=== PATIENT | male | born 1935 ===

== ENCOUNTER 2019-09-22 09:57 | Outpatient (CLI) | payer OTHER, SELFPAY ==
--- NOTE | 2019-09-22 10:29 | XR_ITS ---
WS: [id number] ABDOMEN 1 VIEW(S) HISTORY: abdominal pain COMPARISON: 12/12/2009 Normal bowel gas pattern. 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 Prior cholecystecto my. Sclerotic focus in the RIGHT ilium has been present on prior studies. Degenerative changes at L5-S1. Bilateral hip arthritis. XR/XR KUB [id number] IMPRESSION: 1. Prior cholecystectomy. 2. Splenic artery calcifications. 3. No renal or ureteral calcifications identified.
== END 2019-09-22 09:58 | disposition home or self-care (01) ==
LOC: RAD 10:05
PROVIDERS: Family Provider Emergency Medicine Emergency Medical Services; PCP Emergency Medicine Emergency Medical Services; Visit Provider Internal Medicine
DX: R10.9 Unspecified abdominal pain (principal)
CPT/HCPCS: 74018

== ENCOUNTER 2019-10-23 13:55 | Emergency (ER) | payer OTHER, MEDICARE, SELFPAY ==
[2019-10-23 13:59] VITALS: BP 168/94; PULSE 101; RESP 20; TEMP 37; O2SAT 97; BMI 26.9
--- NOTE | 2019-10-23 14:53 | ED_ITS ---
HPI - Abdominal Pain General: Chief Complaint: Abdominal Pain Stated Complaint: stomach pain Time Seen by Provider: 10/23/19 14:32 History of Present Illness: HPI narrative: Patient is an 79 year old male presenting with abdominal pain. He reports a constant, moderate pain across his lower abdomen that has been present for about 6 months and at times gets very severe. He also has a newer pain in the RLQ that has been present for a few months and in the past week or two has been very severe to the point that he can't stand, lay down or eat. He saw his PCP, Dr. Emerson at the [facility] when the pain first started and had a CT that was normal. He spends cruz in [place] but came back early this year due to the worsening pain. He wanted to see Dr. Fernandez for a colonoscopy but hasn't been able to due to the coronavirus. He has not eaten anything in the past few days because of no appetite and his pain gets worse when he eats. he has had diarrhea some days, constipation some days, and normal BM some days. he feels that his pain is sometimes a little better after a BM. He has not had any trouble urinating. He feels like he has lost about 5 pounds in the past week. He denies fever. MD elicited complaint: abdominal pain Onset (ago): month(s) (6) Pain Consistency: constant Location: RLQ, Suprapubic and Pelvis Severity: severe Quality: stabbing and sharp Radiation: RLQ and suprapubic Exacerbating factors: eating, movement and other (straightening right leg) Relieving factors: bowel movement Associated Symptoms: Reports bloating, change in bowel habits and nausea; Denies dysuria Review of Systems General: Reports: 10 or more systems reviewed and unremarkable except in HPI and below ENMT: Reports: other (difficulty swallowing - has had his esophagus stretched several times) Card: Denies: chest pain or palpitations Resp: Denies: dyspnea, productive cough or non-productive cough GI: Reports: abdominal pain, nausea, early satiety, bloating and change in bowel habits : Denies: flank pain, difficulty urinating or dysuria Neuro: Denies: headache(s), numbness in extremities or weakness in extremities Thor/Lymph: Denies: easy bruising or easy bleeding [facility] ED PFSH: Medical History Atherosclerotic heart disease of [place] coronary artery with other forms of angina pectoris Atrial fibrillation Patient refused taking oral anticoagulation. CAD (coronary artery disease) Diabetes Dyslipidemia (high LDL; low HDL) GERD (gastroesophageal reflux disease) History of essential hypertension HTN (hypertension) Hyperlipidemia Surgical History History of appendectomy History of arthroscopic knee surgery History of cholecystectomy History of circumcision History of colonoscopy History of esophagogastroduodenoscopy (EGD) History of hernia repair History of knee replacement procedure of right knee Social History Smoking and tobacco status: former smoker Physical Exam Const: COMMON NORMALS: average body habitus, healthy appearing and alert HENMT: COMMON NORMALS: normocephalic HEAD & SCALP: normal to inspection and normocephalic Neck/C-Spine: COMMON NORMALS: full ROM, no lymphadenopathy, supple and no JVD Lymph: LYMPHATIC: no lymphadenopathy noted Chest: COMMONS NORMALS: normal inspection of the chest Resp: COMMON NORMALS: normal respiratory effort, No retractions, No use of accessory muscles and clear to auscultation bilaterally AUSCULTATION: clear to auscultation bilaterally Cardio: COMMON NORMALS: no JVD, regular rate and regular rhythm RATE: regular rate RHYTHM: regular rhythm GI: AUSCULTATION: Yes Hyperactive bowel sounds present PALPATION: Yes Firmness to palpation present (GI) and Yes Tenderness to palpation present (GI) (severe diffuse with guarding and rebound) : COMMON NORMALS: Yes no CVA tenderness BLADDER/KIDNEY EXAM: Yes no CVA tenderness Back/Pelvis: COMMON NORMALS: no CVA tenderness and thoracic and lumbar spine normal to inspection Extremity: COMMON NORMALS: normal to inspection and full ROM Neuro: SENSORIUM/ORIENTATION: Yes alert Psych: COMMON NORMALS: mental status grossly normal, Normal thought process present, cooperative, normal affect and speech normal SPEECH: Yes normal speech THOUGHT PROCESS: Normal thought process present Skin: COMMON NORMALS: no rashes or lesions noted and turgor normal GENERAL SKIN EXAM: no rashes or lesions noted and turgor normal Course ED course: Patient will be treated for possible diverticulitis although CT only showed diverticulosis. He is very symptomatic and his clinical picture is consistent. He was given antibiotics and outpatient follow-up. Vital Signs: Vital signs: Vital Signs Temperature 98.6 F 10/23/19 13:59 Pulse Rate 82 10/23/19 20:21 Respiratory Rate 16 10/23/19 20:21 Blood Pressure 168/94 10/23/19 13:59 Pulse Oximetry 94 10/23/19 20:21 MDM - Abdominal Pain Lab Data: Labs: Lab Results 10/23/19 10/23/19 10/23/19 Range/Units 14:48 14:48 14:48 WBC 6.4 (4.0-10.0) 10^3/ uL RBC 5.15 (4.1-5.3) 10^6/u L Hgb 16.5 (11.7-16.6) g/dL Hct 47.9 (42.0-52.0) % MCV 93.0 (80-94) fL MCH 32.0 (28.0-34.0) pg MCHC 34.4 (30.0-36.0) g/dL RDW 13.0 (12.1-15.1) % Plt Count 204 (130-400) 10^3/c mm MPV 10.1 (7.4-10.4) fL Neut % (Auto) 39.2 % Lymph % (Auto) 38.3 % [place] % (Auto) 11.7 % Eos % (Auto) 8.9 % Baso % (Auto) 1.7 % Neut # (Auto) 2.5 (1.8-7.7) 10^3/u L Lymph # (Auto) 2.5 (0.8-4.8) 10^3/u L [place] # (Auto) 0.8 (0.2-0.9) 10^3/u L Eos # (Auto) 0.6 (0.0-0.8) 10^3/u L Baso # (Auto) 0.1 (0.0-0.1) 10^3/u L Nucleated RBC % (a uto) 0 % Nucleated RBCs # 0.0 /100WBC Sodium 138 (136-145) mmol/L Potassium 4.7 (3.5-5.1) mmol/L Chloride 101 (98-107) mmol/L Carbon Dioxide 22 (22-29) mmol/L Anion Gap 19.7 H (5-19) BUN 11 (8-23) mg/dL Creatinine 1.2 (0.7-1.2) mg/dL Glucose 124 H (65-115) mg/dL Calculated Osmolal ity 283 L (285-295) mOsm/k g Lactate 1.5 (0.5-2.2) mmol/L Calcium 11.1 H (8.5-10.5) mg/dL Total Bilirubin 0.5 (0.15-1.2) mg/dL AST 26 (0-40) U/L ALT 20 (0-41) U/L Alkaline Phosphata se 64 (40-130) IU/L Total Protein 8.4 (6.6-8.7) g/dL Albumin 4.6 (3.5-5.2) g/dL Globulin 3.8 (1.3-4.6) g/dL Lipase 32 (13-60) U/L Urine Color (Yellow) Urine Appearance (CLEAR) Urine pH (5-7) Ur Specific Gravit y (1.005-1.030) Urine Protein (Negative) Urine Glucose (UA) (Normal) Urine Ketones (Negative) Urine Blood (Negative) Urine Nitrate (Negative) Urine Bilirubin (NEGATIVE) Urine Urobilinogen (Negative) mg/dL Ur Leukocyte [place] ase (Negative) 10/23/19 Range/Units 18:42 WBC (4.0-10.0) 10^3/ uL RBC (4.1-5.3) 10^6/u L Hgb (11.7-16.6) g/dL Hct (42.0-52.0) % MCV (80-94) fL MCH (28.0-34.0) pg MCHC (30.0-36.0) g/dL RDW (12.1-15.1) % Plt Count (130-400) 10^3/c mm MPV (7.4-10.4) fL Neut % (Auto) % Lymph % (Auto) % [place] % (Auto) % Eos % (Auto) % Baso % (Auto) % Neut # (Auto) (1.8-7.7) 10^3/u L Lymph # (Auto) (0.8-4.8) 10^3/u L [place] # (Auto) (0.2-0.9) 10^3/u L Eos # (Auto) (0.0-0.8) 10^3/u L Baso # (Auto) (0.0-0.1) 10^3/u L Nucleated RBC % (a uto) % Nucleated RBCs # /100WBC Sodium (136-145) mmol/L Potassium (3.5-5.1) mmol/L Chloride (98-107) mmol/L Carbon Dioxide (22-29) mmol/L Anion Gap (5-19) BUN (8-23) mg/dL Creatinine (0.7-1.2) mg/dL Glucose (65-115) mg/dL Calculated Osmolal ity (285-295) mOsm/k g Lactate (0.5-2.2) mmol/L Calcium (8.5-10.5) mg/dL Total Bilirubin (0.15-1.2) mg/dL AST (0-40) U/L ALT (0-41) U/L Alkaline Phosphata se (40-130) IU/L Total Protein (6.6-8.7) g/dL Albumin (3.5-5.2) g/dL Globulin (1.3-4.6) g/dL Lipase (13-60) U/L Urine Color Yellow (Yellow) Urine Appearance Clear (CLEAR) Urine pH 5 (5-7) Ur Specific Gravit y 1.020 (1.005-1.030) Urine Protein Neg (Negative) Urine Glucose (UA) Norm (Normal) Urine Ketones Negative (Negative) Urine Blood Neg (Negative) Urine Nitrate Negative (Negative) Urine Bilirubin Neg (NEGATIVE) Urine Urobilinogen Norm (Negative) mg/dL Ur Leukocyte [place] ase Negative (Negative) Discharge Plan Discharge Patient Disposition: Home, Self-Care Clinical Impression: Abdominal pain Condition: Stable Prescriptions: New ciprofloxacin HCl 500 mg tablet 500 mg PO BID Qty: 14 RF: 0 morphine 15 mg tablet 15 mg PO Q8H PRN (Reason: pain) Qty: 14 RF: 0 No Action clopidogrel [Plavix] 75 mg tablet 75 mg PO DAILY RF: 0 cholecalciferol (vitamin D3) 2,000 unit tablet 2,000 unit PO DAILY RF: 0 isosorbide mononitrate 30 mg tablet extended release 24 hr 30 mg PO TID RF: 0 atenolol 100 mg tablet 100 mg PO DAILY RF: 0 gemfibrozil 600 mg tablet 600 mg PO BID RF: 0 losartan 100 mg tablet 100 mg PO DAILY RF: 0 nitroglycerin [Nitrostat] 0.4 mg tablet, sublingual 0.4 mg SUBLINGUAL Q5M PRN (Reason: Chest Pain) RF: 0 famotidine 20 mg tablet 20 mg PO QDAY Qty: 90 RF: 3 tamsulosin 0.4 mg Capsule 0.4 mg PO DAILY RF: 0 metformin 500 mg tablet extended release 24 hr 500 mg PO BID RF: 0 Dexilant 60 mg capsule,biphase delayed releas 60 mg PO DAILY 56 Days Qty: 60 RF: 0 Discharge Orders: Discharge Order (Routine); Ordered 10/23/19 Ordered By: Manjula Green Referrals: Paul Fernandez MD [Physician] - Pacheco Emerson DO [Primary Care Provider] - Discharge Diet: Advance as tolerated and Full LIquid Discharge Activity: Resume usual activity Patient Instructions: Abdominal Pain (ED) Activity Restrictions/Additional Instructions: Return to the ED if any worsening of the symptoms, fever, vomiting or other concerns. Discharge Date/Time: 10/23/19 20:20 Coding Level of Care Code ED Pipe Washer for Ann-Marie Fajardo Exam Comprehensive
[2019-10-23 15:04] LABS: Basophils # 0.1 10^3/uL (0.0-0.1); Basophils % 1.7 %; Eosinophils # 0.6 10^3/uL (0.0-0.8); Eosinophils % 8.9 %; Hematocrit 47.9 % (42.0-52.0); Hemoglobin 16.5 g/dL (11.7-16.6); Lymphocytes # 2.5 10^3/uL (0.8-4.8); Lymphocytes % 38.3 %; Mean Corpuscular HGB Conc 34.4 g/dL (30.0-36.0); Mean Platelet Volume 10.1 fL (7.4-10.4); Monocytes # 0.8 10^3/uL (0.2-0.9); Monocytes % 11.7 %; Neutrophils # 2.5 10^3/uL (1.8-7.7); Neutrophils % 39.2 %; Nucleated Red Blood Cells % 0 %; Platelet Count 204 10^3/cmm (130-400); Red Blood Count 5.15 10^6/uL (4.1-5.3); White Blood Count 6.4 10^3/uL (4.0-10.0)
[2019-10-23 15:23] LABS: Lactate (Lactic Acid level) 1.5 mmol/L (0.5-2.2)
[2019-10-23 15:27] LABS: Alanine Aminotransferase 20 U/L (0-41); Albumin Level 4.6 g/dL (3.5-5.2); Alkaline Phosphatase 64 IU/L (40-130); Anion Gap 19.7 (5-19); Aspartate Amino Transferase 26 U/L (0-40); Blood Urea Nitrogen 11 mg/dL (8-23); Calcium 11.1 mg/dL (8.5-10.5); Carbon Dioxide 22 mmol/L (22-29); Chloride 101 mmol/L (98-107); Globulin 3.8 g/dL (1.3-4.6); Glucose 124 mg/dL (65-115); Lipase 32 U/L (13-60); Osmolality Calculated 283 mOsm/kg (285-295); Potassium 4.7 mmol/L (3.5-5.1); Sodium 138 mmol/L (136-145); Total Bilirubin 0.5 mg/dL (0.15-1.2); Total Protein 8.4 g/dL (6.6-8.7)
[2019-10-23 15:38] VITALS: RESP 17; O2SAT 98
[2019-10-23] MEDS: ondansetron 2 mg/ML SDV 2 mL 4 MG IVP (15:38)
[2019-10-23] MEDS: morphine 4 mg/mL SDV 1 mL IVP (15:38)
--- NOTE | 2019-10-23 15:38 | CTR_ITS ---
PROCEDURE INFORMATION: Exam: CT Abdomen And Pelvis With Contrast Exam date and time: 10/23/2019 5:05 PM Age: 84 years old Clinical indication: Abdominal pain; Localized; Right lower quadrant (rlq); Prior surgery; Surgery date: 6+ months; Surgery type: Esoph, stomach; Patient HX: C/O worsening rlq abd pain; Additional info: Abdominal pain, fever TECHNIQUE: Imaging protocol: Computed tomography of the abdomen and pelvis with intravenous contrast. Radiation optimization: All CT scans at this facility use at least one of these dose optimization techniques: automated exposure control; mA and/or kV adjustment per patient size (includes targeted exams where dose is matched to clinical indication); or iterative reconstruction. Contrast material: VISI 320; Contrast volume: 95 ml; Contrast route: 20G; COMPARISON: CT abdomen pelvis w con* [id number] 12/04/2018 8:51 AM RADIATION DOSE METRICS: Total DLP: 1101.6 mGy-cm FINDINGS: Liver: Normal. No mass. Gallbladder and bile ducts: Continued dilatation of the intra-and extrahepatic biliary tree which can be normal following cholecystectomy. Stable cholecystectomy. Pancreas: Normal. No ductal dilation. Spleen: Normal. No splenomegaly. Adrenals: Normal. No mass. Kidneys and ureters: Stable left renal cyst measuring > 1.0 cm. Stable right renal cyst measuring > 1.0 cm. Stomach and bowel: Moderate left lower quadrant diverticulosis. Appendix: No evidence of appendicitis. Intraperitoneal space: Unremarkable. No free air. No significant fluid collection. Vasculature: Calcification of the abdominal aorta and/or iliac arteries consistent with atherosclerotic vessel disease. Lymph nodes: Stable right calcified hilar nodes and/or mediastinal nodes and/or lung nodules consistent with old granulomatous disease. Bladder: Unremarkable as visualized. Reproductive: Nonspecific prostate calcifications. Bones/joints: Severe L5-S1 degenerative disc disease and spondylosis. Soft tissues: Unremarkable. Other findings: Mild levoscoliosis. CT/CT abdomen pelvis w con* [id number] IMPRESSION: 1. Continued dilatation of the intra-and extrahepatic biliary tree which can be normal following cholecystectomy. 2. Moderate left lower quadrant diverticulosis. Radiation Dose CTDIVOL = (mGy): DLP = 1101.6 (mGy-cm)
[2019-10-23] MEDS: iodixanol 320 mg/mL 100mL Btl IV (17:26)
[2019-10-23 19:01] LABS: Add Urine Microscopic? NO; Bilirubin Urine Neg (NEGATIVE); Blood Urine Neg (Negative); Glucose Urine UA Norm (Normal); Ketones Urine Negative (Negative); Leukocyte Esterase Urine Negative (Negative); Nitrate Urine Negative (Negative); Protein Urine Neg (Negative); Urine Appearance Clear (CLEAR); Urine Color Yellow (Yellow); Urobilinogen Urine Norm (Negative); pH Urine 5 (5-7)
[2019-10-23] MEDS: oxyCODONE-APAP 5-325 mg Tablet 1 TAB PO (19:52)
[2019-10-23] MEDS: ciprofloxacin 500 mg Tablet PO (19:53)
[2019-10-23] MEDS: metroNIDAZOLE 500 MG Tablet PO (19:53)
[2019-10-23 20:21] VITALS: PULSE 82; RESP 16; O2SAT 94
== END 2019-10-23 20:20 | disposition home or self-care (01) ==
PROVIDERS: Physician Assistant; Emergency Provider Emergency Medicine; Family Provider Emergency Medicine Emergency Medical Services; PCP Emergency Medicine Emergency Medical Services
DX: R10.9 Unspecified abdominal pain (principal); Z79.02 Long term (current) use of antithrombotics/antiplatelets; I48.91 Unspecified atrial fibrillation; I25.10 Atherosclerotic heart disease of native coronary artery without angina pectoris; E11.9 Type 2 diabetes mellitus without complications; E78.5 Hyperlipidemia, unspecified; I10 Essential (primary) hypertension; Z87.891 Personal history of nicotine dependence
CPT/HCPCS: 12345; 36415; 74177; 80053; 81003; 83605; 83690; 85025; 96374; 96375; 99282; 99283; A9270; J2270; J2405; Q9967